=== PATIENT | female | born 1940 | race Two or more races ===

== ENCOUNTER 2023-03-18 19:51 | Inpatient (IN) | payer MEDICARE, BC ==
[~2023-03-18] VITALS: Ht 157.5 cm; Wt 48.1 kg
[2023-03-18 19:30] VITALS: O2SAT 84
[2023-03-18 20:00] VITALS: BP 98/53; TEMP 98.3; O2SAT 85
[2023-03-18 20:15] VITALS: O2SAT 95
[2023-03-18] MEDS ORDERED: ATOR10TA PO (22:02)
[2023-03-18] MEDS ORDERED: HYDR-3980 PO (22:02)
[2023-03-18] MEDS ORDERED: ACET-3117 PO (22:02)
[2023-03-18] MEDS ORDERED: AMIO100T4 PO (22:02)
[2023-03-18] MEDS ORDERED: BUDE0.5A4 IH (22:03)
[2023-03-18] MEDS ORDERED: LEVO100T10 PO (22:06)
[2023-03-18] MEDS ORDERED: [UNRECOGNIZED DRUG - CODE] PO (22:14)
[2023-03-18] MEDS ORDERED: ONDA4TAB5 GT (22:14)
[2023-03-18] MEDS ORDERED: MORP1SYR2 IV (22:14)
[2023-03-18] MEDS ORDERED: CHOL10005 PO (22:22)
[2023-03-19] VITALS (21 sets, daily range): BP systolic 98–133; BP diastolic 53–78; TEMP 97.4–98.5; O2SAT 93–99
[2023-03-19] MEDS ORDERED: Medication Not On Formulary EA (Acetaminophen 650 MG) PO PRN (10:45)
[2023-03-19] MEDS ORDERED: ONDANSETRON HCL 4 MG TABLET GT PRN (10:45)
[2023-03-19] MEDS ORDERED: ACETAMINOPHEN 325 MG TABLET PO PRN (10:45)
[2023-03-19] MEDS ORDERED: MULT-1119 PO (15:20)
[2023-03-19] MEDS ORDERED: ONDANSETRON HCL 4 MG TABLET PO PRN (15:39)
[2023-03-19] MEDS: HYDROCODONE/APAP 10-325 MG TABLET PO PRN (16:23)
[2023-03-19] MEDS ORDERED: BUDESONIDE 0.5 MG/2 ML NEBU IH SCH (17:00)
[2023-03-19 18:15] LABS: CALCIUM 9.3 mg/dL (8.5-10.1); CARBON DIOXIDE 26 mmol/L (21-32); CHLORIDE 96 mmol/L (98-107); CREATININE 1.2 mg/dL (0.6-1.3); GLUCOSE 127 mg/dL (74-106); POTASSIUM 5.2 mmol/L (3.5-5.1); SODIUM SERUM 128 mmol/L (136-145); UREA NITROGEN, BLOOD 34 mg/dL (7-18)
[2023-03-19 18:19] LABS: BASOPHILS # (AUTO) 0.1 K/UL (0.0-0.2); BASOPHILS % (AUTO) 0.9 % (0.0-2.0); DIFFERENTIAL COMMENT 0; EOSINOPHILS # (AUTO) 0.1 K/uL (0.0-0.7); EOSINOPHILS % (AUTO) 0.8 % (0.0-7.0); HEMATOCRIT 21.3 % (31.2-41.9); LYMPHOCYTES # (AUTO) 0.9 K/uL (0.8-4.8); LYMPHOCYTES % (AUTO) 8.5 % (20.5-51.5); MEAN CORPUSCULAR HGB CONC 33 g/dL (32.3-35.6); MEAN CORPUSCULAR VOLUME 107.5 fL (75.5-95.3); MONOCYTES # (AUTO) 1.6 K/uL (0.1-1.30); MONOCYTES % (AUTO) 15.6 % (0.0-11.0); NEUTROPHILS # (AUTO) 7.9 K/uL (1.8-8.9); NEUTROPHILS % (AUTO) 74.2 % (38.5-71.5); PLATELET COUNT (AUTO) 267 K/uL (179-408); RED CELL DISTRIBUTION WIDTH 13.6 % (12.3-17.7); WHITE BLOOD COUNT (AUTO) 10.6 K/uL (3.8-11.8)
[2023-03-19 18:28] LABS: HEMOGLOBIN 6.9 g/dL (10.9-14.3); RED BLOOD CELL COUNT(AUTO) 1.98 MIL/uL (3.63-4.92)
[2023-03-19] MEDS: IV NORMAL SALINE 500 ML IV ONE (20:00)
[2023-03-19 20:20] LABS: EOSINOPHILS % (MANUAL) 2 % (0-8); LYMPHOCYTES % (MANUAL) 11 % (20-40); MONOCYTES % (MANUAL) 16 % (2-10); NEUTROPHILS % (MANUAL) 71 % (42-75); PLATELET ESTIMATE ADEQUATE
[2023-03-19 20:21] LABS: ANISOCYTOSIS 2+
[2023-03-19] MEDS: ATORVASTATIN 10 MG TABLET PO SCH (21:14)
[2023-03-19] MEDS: BUDESONIDE 0.5 MG/2 ML NEBU IH SCH (21:46)
[2023-03-20] VITALS (18 sets, daily range): BP systolic 105–138; BP diastolic 51–68; TEMP 97.8–99.2; O2SAT 95–100
[2023-03-20 04:46] LABS: BASOPHILS # (AUTO) 0.1 K/UL (0.0-0.2); BASOPHILS % (AUTO) 1.3 % (0.0-2.0); EOSINOPHILS # (AUTO) 0.1 K/uL (0.0-0.7); EOSINOPHILS % (AUTO) 1.3 % (0.0-7.0); HEMATOCRIT 24.5 % (31.2-41.9); HEMOGLOBIN 8.4 g/dL (10.9-14.3); LYMPHOCYTES # (AUTO) 0.6 K/uL (0.8-4.8); LYMPHOCYTES % (AUTO) 6.7 % (20.5-51.5); MEAN CORPUSCULAR HEMOGLOBIN 35.5 uug (24.7-32.8); MEAN CORPUSCULAR HGB CONC 34 g/dL (32.3-35.6); MEAN CORPUSCULAR VOLUME 103.5 fL (75.5-95.3); MONOCYTES # (AUTO) 1.6 K/uL (0.1-1.30); MONOCYTES % (AUTO) 16.9 % (0.0-11.0); NEUTROPHILS # (AUTO) 7.1 K/uL (1.8-8.9); NEUTROPHILS % (AUTO) 73.8 % (38.5-71.5); PLATELET COUNT (AUTO) 226 K/uL (179-408); WHITE BLOOD COUNT (AUTO) 9.6 K/uL (3.8-11.8)
[2023-03-20] MEDS: IV NORMAL SALINE 500 ML IV ONE (04:52)
[2023-03-20 05:11] LABS: DIFFERENTIAL COMMENT 1; RED BLOOD CELL COUNT(AUTO) 2.36 MIL/uL (3.63-4.92)
[2023-03-20 05:21] LABS: POTASSIUM 4.9 mmol/L (3.5-5.1)
[2023-03-20] MEDS: LEVOTHYROXINE SODIUM 100 MCG TABLET PO SCH (06:15)
[2023-03-20 06:29] LABS: EOSINOPHILS % (MANUAL) 1 % (0-8); LYMPHOCYTES % (MANUAL) 7 % (20-40); MONOCYTES % (MANUAL) 9 % (2-10); NEUTROPHILS % (MANUAL) 83 % (42-75); PLATELET ESTIMATE ADEQUATE
[2023-03-20 06:30] LABS: ANISOCYTOSIS 1+
[2023-03-20] MEDS ORDERED: IOHEXOL 300MG/ML 100 ML INFUS..BTL ONE (07:44)
[2023-03-20] MEDS ORDERED: IV NORMAL SALINE 250 ML IV ONE (07:44)
[2023-03-20] MEDS: BUDESONIDE 0.5 MG/2 ML NEBU IH SCH ×2 (08:27→20:33)
[2023-03-20] MEDS ORDERED: Medication Not On Formulary EA (Multivitamin (Multi Vitamin Daily) 1 EACH) PO SCH (09:00)
[2023-03-20] MEDS ORDERED: AMIODARONE HCL 100 MG PO SCH (09:00)
[2023-03-20] MEDS ORDERED: Medication Not On Formulary EA (Cholecalciferol (Vitamin D3) (Vitamin D3) 1 CAP) PO SCH (09:00)
[2023-03-20] MEDS: AMIODARONE HCL 200 MG TABLET PO SCH (09:36)
[2023-03-20] MEDS: MULTIVITAMINS,THERAPEUTIC TABLET PO SCH (09:36)
[2023-03-20] MEDS: CHOLECALCIFEROL 1,000 UNIT TABLET PO SCH (09:37)
[2023-03-20] MEDS: HYDROCODONE/APAP 10-325 MG TABLET PO PRN (16:38)
[2023-03-20] MEDS: ATORVASTATIN 10 MG TABLET PO SCH (20:35)
[2023-03-21] VITALS (8 sets, daily range): BP systolic 102–145; BP diastolic 47–67; TEMP 97.8–98.6; O2SAT 96–100
[2023-03-21 05:52] LABS: BASOPHILS # (AUTO) 0.1 K/UL (0.0-0.2); BASOPHILS % (AUTO) 0.9 % (0.0-2.0); EOSINOPHILS # (AUTO) 0.1 K/uL (0.0-0.7); EOSINOPHILS % (AUTO) 1.4 % (0.0-7.0); HEMATOCRIT 24.1 % (31.2-41.9); HEMOGLOBIN 8.1 g/dL (10.9-14.3); LYMPHOCYTES # (AUTO) 0.5 K/uL (0.8-4.8); LYMPHOCYTES % (AUTO) 5.1 % (20.5-51.5); MEAN CORPUSCULAR HEMOGLOBIN 34.6 uug (24.7-32.8); MEAN CORPUSCULAR HGB CONC 34 g/dL (32.3-35.6); MONOCYTES # (AUTO) 1.5 K/uL (0.1-1.30); MONOCYTES % (AUTO) 15.2 % (0.0-11.0); NEUTROPHILS # (AUTO) 7.7 K/uL (1.8-8.9); NEUTROPHILS % (AUTO) 77.4 % (38.5-71.5); PLATELET COUNT (AUTO) 265 K/uL (179-408); RED CELL DISTRIBUTION WIDTH 15.9 % (12.3-17.7)
[2023-03-21] MEDS: LEVOTHYROXINE SODIUM 100 MCG TABLET PO SCH (06:11)
[2023-03-21 06:23] LABS: CALCIUM 9.3 mg/dL (8.5-10.1); CREATININE 0.8 mg/dL (0.6-1.3); MAGNESIUM 1.9 mg/dL (1.8-2.4); PHOSPHOROUS 3.5 mg/dL (2.5-4.9); POTASSIUM 4.7 mmol/L (3.5-5.1)
[2023-03-21 06:46] LABS: DIFFERENTIAL COMMENT 1; RED BLOOD CELL COUNT(AUTO) 2.34 MIL/uL (3.63-4.92)
[2023-03-21] MEDS: BUDESONIDE 0.5 MG/2 ML NEBU IH SCH ×2 (07:39→23:32)
[2023-03-21] MEDS: MULTIVITAMINS,THERAPEUTIC TABLET PO SCH (08:31)
[2023-03-21] MEDS: CHOLECALCIFEROL 1,000 UNIT TABLET PO SCH (08:31)
[2023-03-21] MEDS: AMIODARONE HCL 200 MG TABLET PO SCH (08:31)
[2023-03-21] MEDS: HYDROCODONE/APAP 10-325 MG TABLET PO PRN (08:42)
[2023-03-21] MEDS ORDERED: IV NORMAL SALINE 250 ML IV ONE ×2 (10:58→14:33)
[2023-03-21] MEDS ORDERED: IOHEXOL 300MG/ML 100 ML INFUS..BTL ONE ×2 (10:58→14:33)
[2023-03-21] MEDS ORDERED: SWABABLE VALVE TRANSFER SET EA MC ONE ×2 (10:58→14:33)
[2023-03-21] MEDS ORDERED: APIX2.5T PO (11:42)
[2023-03-21 14:57] LABS: LYMPHOCYTES % (MANUAL) 7 % (20-40); MONOCYTES % (MANUAL) 14 % (2-10); NEUTROPHILS % (MANUAL) 79 % (42-75)
[2023-03-21 14:58] LABS: ANISOCYTOSIS 1+; HYPOCHROMASIA 1+; PLATELET ESTIMATE ADEQUATE
[2023-03-21] MEDS: ATORVASTATIN 10 MG TABLET PO SCH (20:28)
[2023-03-22] VITALS (8 sets, daily range): BP systolic 108–136; BP diastolic 53–61; TEMP 97.9–98.6; O2SAT 94–99
[2023-03-22] MEDS: LEVOTHYROXINE SODIUM 100 MCG TABLET PO SCH (06:32)
[2023-03-22] MEDS: BUDESONIDE 0.5 MG/2 ML NEBU IH SCH ×2 (07:30→19:51)
[2023-03-22] MEDS: CHOLECALCIFEROL 1,000 UNIT TABLET PO SCH (09:22)
[2023-03-22] MEDS: AMIODARONE HCL 200 MG TABLET PO SCH (09:23)
[2023-03-22] MEDS: ENSURE ENLIVE (VAN) 240 ML LIQUID PO SCH (09:24)
[2023-03-22] MEDS: MULTIVITAMINS,THERAPEUTIC TABLET PO SCH (09:24)
[2023-03-22] MEDS ORDERED: BISACODYL 10 MG SUPP.RECT RC PRN (10:15)
[2023-03-22] MEDS ORDERED: FLEET ENEMA 133 ML BOTTLE RC PRN (10:15)
[2023-03-22] MEDS: ATORVASTATIN 10 MG TABLET PO SCH (21:11)
[2023-03-22] MEDS: DOCUSATE SODIUM 100 MG CAPSULE PO SCH (21:12)
[2023-03-23] VITALS (9 sets, daily range): BP systolic 111–137; BP diastolic 40–58; TEMP 98–98.3; O2SAT 94–99
[2023-03-23] MEDS: LEVOTHYROXINE SODIUM 100 MCG TABLET PO SCH (06:03)
[2023-03-23] MEDS: TRAMADOL HCL 50 MG TABLET PO PRN (06:04)
[2023-03-23] MEDS: BUDESONIDE 0.5 MG/2 ML NEBU IH SCH ×2 (08:02→20:27)
[2023-03-23] MEDS: MULTIVITAMINS,THERAPEUTIC TABLET PO SCH (08:19)
[2023-03-23] MEDS: CHOLECALCIFEROL 1,000 UNIT TABLET PO SCH (08:19)
[2023-03-23] MEDS: AMIODARONE HCL 200 MG TABLET PO SCH (08:20)
[2023-03-23] MEDS: ENSURE ENLIVE (VAN) 240 ML LIQUID PO SCH (08:20)
[2023-03-23] MEDS: ATORVASTATIN 10 MG TABLET PO SCH (20:41)
[2023-03-23] MEDS: DOCUSATE SODIUM 100 MG CAPSULE PO SCH (20:41)
[2023-03-24] VITALS (9 sets, daily range): BP systolic 121–139; BP diastolic 49–76; TEMP 97.7–98.5; O2SAT 93–100
[2023-03-24] MEDS: LEVOTHYROXINE SODIUM 100 MCG TABLET PO SCH (06:09)
[2023-03-24] MEDS ORDERED: LIDOCAINE HCL 1% 20 ML VIAL ONE (06:50)
[2023-03-24] MEDS ORDERED: BUPIVACAINE 0.25% 30 ML VIAL ONE (06:50)
[2023-03-24] MEDS ORDERED: MIDAZOLAM HCL 2 MG/2 ML VIAL ONE (07:30)
[2023-03-24] MEDS ORDERED: FENTANYL CITRATE 100 MCG/2 ML AMPUL ONE (07:30)
[2023-03-24] MEDS: BUDESONIDE 0.5 MG/2 ML NEBU IH SCH ×2 (07:30→18:11)
[2023-03-24] MEDS ORDERED: SEVOFLURANE 250 ML BOTTLE ONE (07:43)
[2023-03-24] MEDS ORDERED: BUPIVACAINE PF 0.5% 30 ML VIAL ONE (08:13)
[2023-03-24] MEDS: CHOLECALCIFEROL 1,000 UNIT TABLET PO SCH (10:37)
[2023-03-24] MEDS: ENSURE ENLIVE (VAN) 240 ML LIQUID PO SCH (10:38)
[2023-03-24] MEDS: MULTIVITAMINS,THERAPEUTIC TABLET PO SCH (10:38)
[2023-03-24] MEDS: AMIODARONE HCL 200 MG TABLET PO SCH (10:38)
[2023-03-24 11:41] LABS: BASOPHILS # (AUTO) 0.2 K/UL (0.0-0.2); DIFFERENTIAL COMMENT 0; EOSINOPHILS % (AUTO) 0.1 % (0.0-7.0); HEMATOCRIT 30.1 % (31.2-41.9); HEMOGLOBIN 9.7 g/dL (10.9-14.3); LYMPHOCYTES # (AUTO) 0.4 K/uL (0.8-4.8); LYMPHOCYTES % (AUTO) 2.8 % (20.5-51.5); MEAN CORPUSCULAR HEMOGLOBIN 33.7 uug (24.7-32.8); MEAN CORPUSCULAR HGB CONC 32 g/dL (32.3-35.6); MEAN CORPUSCULAR VOLUME 104.8 fL (75.5-95.3); MONOCYTES # (AUTO) 0.5 K/uL (0.1-1.30); MONOCYTES % (AUTO) 3.6 % (0.0-11.0); NEUTROPHILS % (AUTO) 92.5 % (38.5-71.5); PLATELET COUNT (AUTO) 454 K/uL (179-408); RED BLOOD CELL COUNT(AUTO) 2.87 MIL/uL (3.63-4.92); RED CELL DISTRIBUTION WIDTH 15.1 % (12.3-17.7); WHITE BLOOD COUNT (AUTO) 15.1 K/uL (3.8-11.8)
[2023-03-24 12:36] LABS: ALANINE AMINOTRANSFERASE 14 U/L (14-59); ALBUMIN 2.7 g/dL (3.4-5.0); ALKALINE PHOSPHATASE 112 U/L (50-136); ASPARTATE AMINOTRANSFERASE 46 U/L (15-37); BILIRUBIN,TOTAL 0.7 mg/dL (0.2-1.0); CALCIUM 9.2 mg/dL (8.5-10.1); CARBON DIOXIDE 31 mmol/L (21-32); CHLORIDE 100 mmol/L (98-107); CHOLESTEROL 116 mg/dL (<200); CREATININE 0.8 mg/dL (0.6-1.3); GLUCOSE 134 mg/dL (74-106); HDL CHOLESTEROL 59 mg/dL (40-60); PHOSPHOROUS 4.3 mg/dL (2.5-4.9); SODIUM SERUM 135 mmol/L (136-145); TOTAL PROTEIN, SERUM 6.8 g/dL (6.4-8.2); TRIGLYCERIDES 44 MG/DL (30-150); UREA NITROGEN, BLOOD 21 mg/dL (7-18)
[2023-03-24 12:52] LABS: IRON, SERUM 22 ug/dL (50-175)
[2023-03-24 13:28] LABS: THYROID STIMULATING HORMONE 4.209 mIU/mL (0.358-3.740)
[2023-03-24 14:46] LABS: POTASSIUM 5.4 mmol/L (3.5-5.1)
[2023-03-24 17:20] LABS: CREATININE 0.8 mg/dL (0.6-1.3); POTASSIUM 5.5 mmol/L (3.5-5.1)
[2023-03-24] MEDS: FLUTICASONE/VILANTEROL 1 EACH BLST.W.DEV INH SCH (18:17)
[2023-03-24] MEDS ORDERED: ALBUTEROL SULFATE 2.5 MG/3 ML NEBU NEB PRN (18:30)
[2023-03-24] MEDS ORDERED: SODIUM POLYSTYRENE SULFONATE 15 G/60 ML LIQUID UDC PO ONE (20:30)
[2023-03-24] MEDS: DOCUSATE SODIUM 100 MG CAPSULE PO SCH (21:30)
[2023-03-24] MEDS: ATORVASTATIN 10 MG TABLET PO SCH (21:30)
[2023-03-24] MEDS: VANCOMYCIN IV 750 MG in IV DEXTROSE 5% 250 ML IV SCH (21:33)
[2023-03-24] MEDS ORDERED: PIPERACILLIN SODIUM/TAZOBACTAM 3.375 G in IV DEXTROSE 5% 50 ML IV SCH (22:00)
[2023-03-24] MEDS: PIPERACILLIN SODIUM/TAZOBACTAM 3.375 G in IV DEXTROSE 5% 100 ML IV SCH (22:56)
[2023-03-25] VITALS (8 sets, daily range): BP systolic 112–114; BP diastolic 42–56; TEMP 97.7–98.6; O2SAT 94–100
[2023-03-25] MEDS: LEVOTHYROXINE SODIUM 100 MCG TABLET PO SCH (06:22)
[2023-03-25] MEDS: PIPERACILLIN SODIUM/TAZOBACTAM 3.375 G in IV DEXTROSE 5% 100 ML IV SCH ×3 (06:22→21:05)
[2023-03-25 06:57] LABS: BASOPHILS % (AUTO) 0.1 % (0.0-2.0); HEMATOCRIT 24.4 % (31.2-41.9); HEMOGLOBIN 8.1 g/dL (10.9-14.3); LYMPHOCYTES # (AUTO) 0.3 K/uL (0.8-4.8); LYMPHOCYTES % (AUTO) 2.1 % (20.5-51.5); MEAN CORPUSCULAR HEMOGLOBIN 33.9 uug (24.7-32.8); MEAN CORPUSCULAR HGB CONC 33 g/dL (32.3-35.6); MEAN CORPUSCULAR VOLUME 102.2 fL (75.5-95.3); MONOCYTES # (AUTO) 1.5 K/uL (0.1-1.30); MONOCYTES % (AUTO) 10.3 % (0.0-11.0); NEUTROPHILS # (AUTO) 12.6 K/uL (1.8-8.9); NEUTROPHILS % (AUTO) 87.5 % (38.5-71.5); PLATELET COUNT (AUTO) 385 K/uL (179-408); RED CELL DISTRIBUTION WIDTH 14.7 % (12.3-17.7); WHITE BLOOD COUNT (AUTO) 14.4 K/uL (3.8-11.8)
[2023-03-25 07:17] LABS: ALBUMIN 2.4 g/dL (3.4-5.0); ALKALINE PHOSPHATASE 91 U/L (50-136); ASPARTATE AMINOTRANSFERASE 19 U/L (15-37); BILIRUBIN,TOTAL 0.4 mg/dL (0.2-1.0); CARBON DIOXIDE 32 mmol/L (21-32); CHLORIDE 99 mmol/L (98-107); CREATININE 0.9 mg/dL (0.6-1.3); DIFFERENTIAL COMMENT 1; GLUCOSE 130 mg/dL (74-106); NT-PRO BNP 19849 pg/mL (0-125); PHOSPHOROUS 4.3 mg/dL (2.5-4.9); POTASSIUM 4.9 mmol/L (3.5-5.1); RED BLOOD CELL COUNT(AUTO) 2.39 MIL/uL (3.63-4.92); SODIUM SERUM 133 mmol/L (136-145); TOTAL PROTEIN, SERUM 5.8 g/dL (6.4-8.2); UREA NITROGEN, BLOOD 29 mg/dL (7-18)
[2023-03-25 07:32] LABS: C-REACTIVE PROTEIN 28.9 mg/dL (0.0-0.9)
[2023-03-25 07:45] LABS: *RHEUMATOID FACTOR SCREEN NEGATIVE (NEGATIVE)
[2023-03-25 07:53] LABS: ALANINE AMINOTRANSFERASE 10 U/L (14-59)
[2023-03-25] MEDS: FLUTICASONE/VILANTEROL 1 EACH BLST.W.DEV INH SCH (09:18)
[2023-03-25] MEDS: AMIODARONE HCL 200 MG TABLET PO SCH (09:19)
[2023-03-25] MEDS: MULTIVITAMINS,THERAPEUTIC TABLET PO SCH (09:19)
[2023-03-25] MEDS: CHOLECALCIFEROL 1,000 UNIT TABLET PO SCH (09:19)
[2023-03-25] MEDS: ENSURE ENLIVE (VAN) 240 ML LIQUID PO SCH (09:19)
[2023-03-25] MEDS: BUDESONIDE 0.5 MG/2 ML NEBU IH SCH ×2 (10:02→19:39)
[2023-03-25] MEDS ORDERED: LORAZEPAM 1 MG TABLET PO PRN (16:45)
[2023-03-25] MEDS: TRAMADOL HCL 50 MG TABLET PO PRN (17:13)
[2023-03-25] MEDS: ATORVASTATIN 10 MG TABLET PO SCH (20:13)
[2023-03-25] MEDS: DOCUSATE SODIUM 100 MG CAPSULE PO SCH (20:13)
[2023-03-25] MEDS: VANCOMYCIN IV 750 MG in IV DEXTROSE 5% 250 ML IV SCH (20:13)
[2023-03-26] VITALS (8 sets, daily range): BP systolic 123–130; BP diastolic 51–68; TEMP 97.8–98.1; O2SAT 98–100
[2023-03-26] MEDS: TRAMADOL HCL 50 MG TABLET PO PRN (00:02)
[2023-03-26] MEDS: PIPERACILLIN SODIUM/TAZOBACTAM 3.375 G in IV DEXTROSE 5% 100 ML IV SCH ×3 (05:25→22:08)
[2023-03-26] MEDS: LEVOTHYROXINE SODIUM 100 MCG TABLET PO SCH (06:32)
[2023-03-26] MEDS: BUDESONIDE 0.5 MG/2 ML NEBU IH SCH ×2 (07:44→19:22)
[2023-03-26] MEDS: FLUTICASONE/VILANTEROL 1 EACH BLST.W.DEV INH SCH (09:40)
[2023-03-26] MEDS: CHOLECALCIFEROL 1,000 UNIT TABLET PO SCH (09:40)
[2023-03-26] MEDS: AMIODARONE HCL 200 MG TABLET PO SCH (09:41)
[2023-03-26] MEDS: MULTIVITAMINS,THERAPEUTIC TABLET PO SCH (09:41)
[2023-03-26] MEDS: ENSURE ENLIVE (VAN) 240 ML LIQUID PO SCH (09:41)
[2023-03-26] MEDS: FUROSEMIDE 20 MG/2 ML VIAL IV SCH (10:44)
[2023-03-26 12:07] LABS: *IMMUNOGLOBULIN G, SERUM 852 mg/dL (586-1602); IMMUNOGLOBULIN A, SERUM 282 mg/dL (64-422); IMMUNOGLOBULIN M, SERUM 160 mg/dL (26-217)
[2023-03-26 12:17] LABS: *BILIRUBIN,URIN NEGATIVE (NEGATIVE); *BLOOD, URINE NEGATIVE (NEGATIVE); *CLARITY,URINE SLIGHTLY CLOUDY (CLEAR); *COLOR,URINE YELLOW (YELLOW); *KETONES,URINE NEGATIVE (NEGATIVE); *PROTEIN,URINE NEGATIVE (NEGATIVE); *UROBILINOGEN,URINE 0.2 E.U./dl (NORMAL); LEUKOCYTE ESTERASE ,URINE 2+ (NEGATIVE); NITRITE, URINE NEGATIVE (NEGATIVE); PH,URINE 5.5 (5.0-8.0); UGLUCOSE NEGATIVE (NEGATIVE)
[2023-03-26 13:03] LABS: BACTERIA,URINE MANY /HPF (NONE SEEN); RBC,URINE NONE SEEN /HPF (0-3); SQUAMOUS EPITHELIAL CELL,UR FEW /HPF (NONE SEEN); WBC,URINE TNTC /HPF (0-3)
[2023-03-26 13:07] LABS: *ANTI-SCLERODERMA-70 AB <0.2 AI (0.0-0.9); *RNP ANTIBODIES <0.2 AI (0.0-0.9); *SJOGREN'S ANTI-SS-A <0.2 AI (0.0-0.9); *SJOGREN'S ANTI-SS-B <0.2 AI (0.0-0.9); *SMITH ANTIBODIES <0.2 AI (0.0-0.9); ANTI-DNA(DS) AB, QN 3 IU/mL (0-9); ANTI-NUCLEAR AB DIRECT Negative (Negative)
[2023-03-26] MEDS ORDERED: GADOTERATE MEGLUMINE 5 MMOL/10 ML VIAL IV ONE (14:33)
[2023-03-26 16:15] LABS: BASOPHILS # (AUTO) 0.1 K/UL (0.0-0.2); BASOPHILS % (AUTO) 0.6 % (0.0-2.0); EOSINOPHILS # (AUTO) 0.1 K/uL (0.0-0.7); EOSINOPHILS % (AUTO) 1.1 % (0.0-7.0); HEMATOCRIT 26.3 % (31.2-41.9); HEMOGLOBIN 8.5 g/dL (10.9-14.3); LYMPHOCYTES # (AUTO) 0.5 K/uL (0.8-4.8); LYMPHOCYTES % (AUTO) 4.6 % (20.5-51.5); MEAN CORPUSCULAR HEMOGLOBIN 32.9 uug (24.7-32.8); MEAN CORPUSCULAR HGB CONC 32 g/dL (32.3-35.6); MEAN CORPUSCULAR VOLUME 101.6 fL (75.5-95.3); MONOCYTES # (AUTO) 1.1 K/uL (0.1-1.30); MONOCYTES % (AUTO) 10.2 % (0.0-11.0); NEUTROPHILS # (AUTO) 9.1 K/uL (1.8-8.9); NEUTROPHILS % (AUTO) 83.5 % (38.5-71.5); PLATELET COUNT (AUTO) 449 K/uL (179-408); RED BLOOD CELL COUNT(AUTO) 2.59 MIL/uL (3.63-4.92); WHITE BLOOD COUNT (AUTO) 10.8 K/uL (3.8-11.8)
[2023-03-26 16:20] LABS: DIFFERENTIAL COMMENT 1
[2023-03-26] MEDS: VANCOMYCIN IV 750 MG in IV DEXTROSE 5% 250 ML IV SCH (19:56)
[2023-03-26] MEDS: DOCUSATE SODIUM 100 MG CAPSULE PO SCH (20:00)
[2023-03-26] MEDS: ATORVASTATIN 10 MG TABLET PO SCH (20:00)
[2023-03-27] VITALS (8 sets, daily range): BP systolic 112–127; BP diastolic 47–53; TEMP 97.7–98.2; O2SAT 93–100
[2023-03-27] MEDS: PIPERACILLIN SODIUM/TAZOBACTAM 3.375 G in IV DEXTROSE 5% 100 ML IV SCH ×3 (05:19→23:18)
[2023-03-27] MEDS: LEVOTHYROXINE SODIUM 100 MCG TABLET PO SCH (06:31)
[2023-03-27 07:20] LABS: BASOPHILS # (AUTO) 0.2 K/UL (0.0-0.2); BASOPHILS % (AUTO) 1.7 % (0.0-2.0); EOSINOPHILS # (AUTO) 0.1 K/uL (0.0-0.7); EOSINOPHILS % (AUTO) 1.2 % (0.0-7.0); HEMATOCRIT 24.4 % (31.2-41.9); HEMOGLOBIN 7.8 g/dL (10.9-14.3); LYMPHOCYTES # (AUTO) 0.4 K/uL (0.8-4.8); LYMPHOCYTES % (AUTO) 3.4 % (20.5-51.5); MEAN CORPUSCULAR HEMOGLOBIN 32.9 uug (24.7-32.8); MEAN CORPUSCULAR HGB CONC 32 g/dL (32.3-35.6); MEAN CORPUSCULAR VOLUME 102.6 fL (75.5-95.3); MONOCYTES # (AUTO) 1.3 K/uL (0.1-1.30); MONOCYTES % (AUTO) 11.2 % (0.0-11.0); NEUTROPHILS # (AUTO) 9.5 K/uL (1.8-8.9); NEUTROPHILS % (AUTO) 82.5 % (38.5-71.5); PLATELET COUNT (AUTO) 387 K/uL (179-408); RED CELL DISTRIBUTION WIDTH 15.5 % (12.3-17.7); WHITE BLOOD COUNT (AUTO) 11.5 K/uL (3.8-11.8)
[2023-03-27 07:38] LABS: DIFFERENTIAL COMMENT 1; RED BLOOD CELL COUNT(AUTO) 2.38 MIL/uL (3.63-4.92)
[2023-03-27] MEDS: BUDESONIDE 0.5 MG/2 ML NEBU IH SCH ×2 (08:37→19:58)
[2023-03-27] MEDS: CHOLECALCIFEROL 1,000 UNIT TABLET PO SCH (09:16)
[2023-03-27] MEDS: MULTIVITAMINS,THERAPEUTIC TABLET PO SCH (09:16)
[2023-03-27] MEDS: FUROSEMIDE 20 MG/2 ML VIAL IV SCH (09:17)
[2023-03-27] MEDS: AMIODARONE HCL 200 MG TABLET PO SCH (09:17)
[2023-03-27] MEDS: FLUTICASONE/VILANTEROL 1 EACH BLST.W.DEV INH SCH (09:17)
[2023-03-27] MEDS: ENSURE ENLIVE (VAN) 240 ML LIQUID PO SCH (09:18)
[2023-03-27] MEDS: SOD FERRIC GLUC COMPLX/SUCROSE 125 MG in IV NORMAL SALINE 100 ML IV SCH (14:58)
[2023-03-27 20:26] LABS: HIV-1/2 ANTIBODY NON REACTIVE (NONREACTIVE)
[2023-03-27 20:27] LABS: HIV-1 p24 ANTIGEN NON REACTIVE (NONREACTIVE)
[2023-03-27] MEDS: VANCOMYCIN IV 750 MG in IV DEXTROSE 5% 250 ML IV SCH (20:42)
[2023-03-27] MEDS: ATORVASTATIN 10 MG TABLET PO SCH (20:43)
[2023-03-27] MEDS: DOCUSATE SODIUM 100 MG CAPSULE PO SCH (20:43)
[2023-03-27] MEDS: APIXABAN 2.5 MG TABLET PO SCH (21:23)
[2023-03-28] VITALS (8 sets, daily range): BP systolic 124–136; BP diastolic 46–54; TEMP 97.8–98.7; O2SAT 93–100
[2023-03-28] MEDS: PIPERACILLIN SODIUM/TAZOBACTAM 3.375 G in IV DEXTROSE 5% 100 ML IV SCH ×3 (06:02→22:10)
[2023-03-28] MEDS: LEVOTHYROXINE SODIUM 100 MCG TABLET PO SCH (06:02)
[2023-03-28] MEDS: BUDESONIDE 0.5 MG/2 ML NEBU IH SCH ×2 (07:32→19:42)
[2023-03-28 07:38] LABS: BASOPHILS # (AUTO) 0.1 K/UL (0.0-0.2); BASOPHILS % (AUTO) 0.8 % (0.0-2.0); DIFFERENTIAL COMMENT 0; EOSINOPHILS # (AUTO) 0.2 K/uL (0.0-0.7); EOSINOPHILS % (AUTO) 1.3 % (0.0-7.0); HEMOGLOBIN 7.5 g/dL (10.9-14.3); LYMPHOCYTES # (AUTO) 0.3 K/uL (0.8-4.8); LYMPHOCYTES % (AUTO) 2.4 % (20.5-51.5); MEAN CORPUSCULAR HEMOGLOBIN 32.2 uug (24.7-32.8); MEAN CORPUSCULAR HGB CONC 33 g/dL (32.3-35.6); MEAN CORPUSCULAR VOLUME 98.9 fL (75.5-95.3); MONOCYTES # (AUTO) 1.3 K/uL (0.1-1.30); MONOCYTES % (AUTO) 10.7 % (0.0-11.0); NEUTROPHILS # (AUTO) 10.2 K/uL (1.8-8.9); NEUTROPHILS % (AUTO) 84.8 % (38.5-71.5); PLATELET COUNT (AUTO) 413 K/uL (179-408); RED CELL DISTRIBUTION WIDTH 15.5 % (12.3-17.7); WHITE BLOOD COUNT (AUTO) 12.1 K/uL (3.8-11.8)
[2023-03-28 07:40] LABS: RED BLOOD CELL COUNT(AUTO) 2.32 MIL/uL (3.63-4.92)
[2023-03-28] MEDS: CHOLECALCIFEROL 1,000 UNIT TABLET PO SCH (09:34)
[2023-03-28] MEDS: FUROSEMIDE 20 MG/2 ML VIAL IV SCH (09:34)
[2023-03-28] MEDS: AMIODARONE HCL 200 MG TABLET PO SCH (09:34)
[2023-03-28] MEDS: MULTIVITAMINS,THERAPEUTIC TABLET PO SCH (09:34)
[2023-03-28] MEDS: APIXABAN 2.5 MG TABLET PO SCH ×2 (09:36→20:40)
[2023-03-28] MEDS: ENSURE ENLIVE (VAN) 240 ML LIQUID PO SCH (09:37)
[2023-03-28] MEDS: FLUTICASONE/VILANTEROL 1 EACH BLST.W.DEV INH SCH (09:37)
[2023-03-28] MEDS: SOD FERRIC GLUC COMPLX/SUCROSE 125 MG in IV NORMAL SALINE 100 ML IV SCH (14:34)
[2023-03-28] MEDS: VANCOMYCIN IV 750 MG in IV DEXTROSE 5% 250 ML IV SCH (20:40)
[2023-03-28] MEDS: ATORVASTATIN 10 MG TABLET PO SCH (20:40)
[2023-03-28] MEDS: DOCUSATE SODIUM 100 MG CAPSULE PO SCH (20:40)
[2023-03-29] VITALS (7 sets, daily range): BP systolic 134–143; BP diastolic 55–72; TEMP 97.6–99; O2SAT 93–99
[2023-03-29 05:07] LABS: A/G RATIO 0.9 (0.7-1.7); ALBUMIN 2.4 g/dL (2.9-4.4); ALPHA-1-GLOBULIN 0.5 g/dL (0.0-0.4); ALPHA-2-GLOBULIN 0.7 g/dL (0.4-1.0); BETA GLOBULIN 0.8 g/dL (0.7-1.3); GAMMA GLOBULIN 0.9 g/dL (0.4-1.8); GLOBULIN, TOTAL 2.8 g/dL (2.2-3.9); M-SPIKE Not Observed g/dL (Not Observed)
[2023-03-29] MEDS: PIPERACILLIN SODIUM/TAZOBACTAM 3.375 G in IV DEXTROSE 5% 100 ML IV SCH ×3 (06:26→22:10)
[2023-03-29] MEDS: LEVOTHYROXINE SODIUM 100 MCG TABLET PO SCH (06:26)
[2023-03-29] MEDS: CHOLECALCIFEROL 1,000 UNIT TABLET PO SCH (08:30)
[2023-03-29] MEDS: MULTIVITAMINS,THERAPEUTIC TABLET PO SCH (08:30)
[2023-03-29] MEDS: FUROSEMIDE 20 MG/2 ML VIAL IV SCH (08:31)
[2023-03-29] MEDS: FLUTICASONE/VILANTEROL 1 EACH BLST.W.DEV INH SCH (08:31)
[2023-03-29] MEDS: AMIODARONE HCL 200 MG TABLET PO SCH (08:31)
[2023-03-29] MEDS: APIXABAN 2.5 MG TABLET PO SCH ×2 (08:41→20:53)
[2023-03-29] MEDS: ENSURE ENLIVE (VAN) 240 ML LIQUID PO SCH (08:42)
[2023-03-29 10:53] LABS: BASOPHILS # (AUTO) 0.1 K/UL (0.0-0.2); BASOPHILS % (AUTO) 0.6 % (0.0-2.0); EOSINOPHILS # (AUTO) 0.1 K/uL (0.0-0.7); EOSINOPHILS % (AUTO) 0.7 % (0.0-7.0); HEMATOCRIT 26.3 % (31.2-41.9); HEMOGLOBIN 8.5 g/dL (10.9-14.3); LYMPHOCYTES # (AUTO) 0.3 K/uL (0.8-4.8); LYMPHOCYTES % (AUTO) 2.3 % (20.5-51.5); MEAN CORPUSCULAR HEMOGLOBIN 32.3 uug (24.7-32.8); MEAN CORPUSCULAR HGB CONC 32 g/dL (32.3-35.6); MEAN CORPUSCULAR VOLUME 99.7 fL (75.5-95.3); MONOCYTES # (AUTO) 0.9 K/uL (0.1-1.30); MONOCYTES % (AUTO) 8.3 % (0.0-11.0); NEUTROPHILS # (AUTO) 9.6 K/uL (1.8-8.9); NEUTROPHILS % (AUTO) 88.1 % (38.5-71.5); PLATELET COUNT (AUTO) 470 K/uL (179-408); RED BLOOD CELL COUNT(AUTO) 2.64 MIL/uL (3.63-4.92); RED CELL DISTRIBUTION WIDTH 15.8 % (12.3-17.7); WHITE BLOOD COUNT (AUTO) 10.9 K/uL (3.8-11.8)
[2023-03-29 11:05] LABS: DIFFERENTIAL COMMENT 1
[2023-03-29] MEDS: SOD FERRIC GLUC COMPLX/SUCROSE 125 MG in IV NORMAL SALINE 100 ML IV SCH (14:28)
[2023-03-29] MEDS: BUDESONIDE 0.5 MG/2 ML NEBU IH SCH ×2 (16:17→20:34)
[2023-03-29] MEDS: ATORVASTATIN 10 MG TABLET PO SCH (20:53)
[2023-03-29] MEDS: DOCUSATE SODIUM 100 MG CAPSULE PO SCH (20:53)
[2023-03-30 05:11] VITALS: BP 127/41; TEMP 98.6; O2SAT 99
[2023-03-30] MEDS: PIPERACILLIN SODIUM/TAZOBACTAM 3.375 G in IV DEXTROSE 5% 100 ML IV SCH ×2 (06:11→13:01)
[2023-03-30] MEDS: LEVOTHYROXINE SODIUM 100 MCG TABLET PO SCH (06:17)
[2023-03-30 07:05] LABS: BASOPHILS # (AUTO) 0.1 K/UL (0.0-0.2); BASOPHILS % (AUTO) 1.3 % (0.0-2.0); EOSINOPHILS # (AUTO) 0.2 K/uL (0.0-0.7); EOSINOPHILS % (AUTO) 2.1 % (0.0-7.0); HEMATOCRIT 23.6 % (31.2-41.9); HEMOGLOBIN 7.6 g/dL (10.9-14.3); LYMPHOCYTES # (AUTO) 0.4 K/uL (0.8-4.8); LYMPHOCYTES % (AUTO) 4.1 % (20.5-51.5); MEAN CORPUSCULAR HEMOGLOBIN 32.3 uug (24.7-32.8); MEAN CORPUSCULAR HGB CONC 32 g/dL (32.3-35.6); MEAN CORPUSCULAR VOLUME 100.1 fL (75.5-95.3); MONOCYTES # (AUTO) 1.3 K/uL (0.1-1.30); MONOCYTES % (AUTO) 12.8 % (0.0-11.0); NEUTROPHILS # (AUTO) 8.1 K/uL (1.8-8.9); NEUTROPHILS % (AUTO) 79.7 % (38.5-71.5); PLATELET COUNT (AUTO) 431 K/uL (179-408); RED CELL DISTRIBUTION WIDTH 15.9 % (12.3-17.7); WHITE BLOOD COUNT (AUTO) 10.2 K/uL (3.8-11.8)
[2023-03-30 07:18] LABS: DIFFERENTIAL COMMENT 1; RED BLOOD CELL COUNT(AUTO) 2.36 MIL/uL (3.63-4.92)
[2023-03-30 07:30] VITALS: O2SAT 97
[2023-03-30 07:40] VITALS: BP 124/58; TEMP 97.7; O2SAT 94; O2SAT 99
[2023-03-30] MEDS: BUDESONIDE 0.5 MG/2 ML NEBU IH SCH ×2 (07:49→19:21)
[2023-03-30] MEDS: FLUTICASONE/VILANTEROL 1 EACH BLST.W.DEV INH SCH (08:27)
[2023-03-30] MEDS: FUROSEMIDE 20 MG/2 ML VIAL IV SCH (08:27)
[2023-03-30] MEDS: AMIODARONE HCL 200 MG TABLET PO SCH (08:28)
[2023-03-30] MEDS: APIXABAN 2.5 MG TABLET PO SCH ×2 (08:30→21:02)
[2023-03-30] MEDS: CHOLECALCIFEROL 1,000 UNIT TABLET PO SCH (08:31)
[2023-03-30] MEDS: ENSURE ENLIVE (VAN) 240 ML LIQUID PO SCH (08:31)
[2023-03-30] MEDS: MULTIVITAMINS,THERAPEUTIC TABLET PO SCH (08:31)
[2023-03-30] MEDS: SOD FERRIC GLUC COMPLX/SUCROSE 125 MG in IV NORMAL SALINE 100 ML IV SCH (13:10)
[2023-03-30 16:00] VITALS: BP 134/59; TEMP 98.1; O2SAT 93
[2023-03-30 19:21] VITALS: O2SAT 99
[2023-03-30 19:31] VITALS: O2SAT 100
[2023-03-30] MEDS: ATORVASTATIN 10 MG TABLET PO SCH (20:57)
[2023-03-30] MEDS: DOCUSATE SODIUM 100 MG CAPSULE PO SCH (21:00)
[2023-03-31 06:10] VITALS: BP 116/60; TEMP 97.8; O2SAT 100
[2023-03-31] MEDS: LEVOTHYROXINE SODIUM 100 MCG TABLET PO SCH (06:17)
[2023-03-31 06:35] LABS: BASOPHILS # (AUTO) 0.2 K/UL (0.0-0.2); EOSINOPHILS # (AUTO) 0.2 K/uL (0.0-0.7); EOSINOPHILS % (AUTO) 2.5 % (0.0-7.0); HEMATOCRIT 23.8 % (31.2-41.9); HEMOGLOBIN 7.9 g/dL (10.9-14.3); LYMPHOCYTES # (AUTO) 0.5 K/uL (0.8-4.8); LYMPHOCYTES % (AUTO) 5.9 % (20.5-51.5); MEAN CORPUSCULAR HEMOGLOBIN 32.6 uug (24.7-32.8); MEAN CORPUSCULAR HGB CONC 33 g/dL (32.3-35.6); MEAN CORPUSCULAR VOLUME 98.7 fL (75.5-95.3); MONOCYTES # (AUTO) 1.1 K/uL (0.1-1.30); MONOCYTES % (AUTO) 14.2 % (0.0-11.0); NEUTROPHILS # (AUTO) 5.8 K/uL (1.8-8.9); NEUTROPHILS % (AUTO) 75.4 % (38.5-71.5); PLATELET COUNT (AUTO) 451 K/uL (179-408); RED CELL DISTRIBUTION WIDTH 15.9 % (12.3-17.7); WHITE BLOOD COUNT (AUTO) 7.7 K/uL (3.8-11.8)
[2023-03-31 06:48] LABS: DIFFERENTIAL COMMENT 1; RED BLOOD CELL COUNT(AUTO) 2.41 MIL/uL (3.63-4.92)
[2023-03-31 07:51] VITALS: BP 145/58; TEMP 97.7; O2SAT 99
[2023-03-31] MEDS: APIXABAN 2.5 MG TABLET PO SCH (08:13)
[2023-03-31] MEDS: MULTIVITAMINS,THERAPEUTIC TABLET PO SCH (08:13)
[2023-03-31] MEDS: FLUTICASONE/VILANTEROL 1 EACH BLST.W.DEV INH SCH (08:14)
[2023-03-31] MEDS: FUROSEMIDE 20 MG/2 ML VIAL IV SCH (08:14)
[2023-03-31] MEDS: CHOLECALCIFEROL 1,000 UNIT TABLET PO SCH (08:14)
[2023-03-31] MEDS: AMIODARONE HCL 200 MG TABLET PO SCH (08:14)
[2023-03-31] MEDS: ENSURE ENLIVE (VAN) 240 ML LIQUID PO SCH (08:15)
[2023-03-31] MEDS: BUDESONIDE 0.5 MG/2 ML NEBU IH SCH (08:55)
[2023-03-31 15:08] VITALS: BP 128/58; TEMP 98.2; O2SAT 94
== END 2023-03-31 16:00 | disposition home health service (06) | DRG 949 ==
LOC: ICU 19:51 → CCU 03-19 07:58
PROVIDERS: ADMIT Physical Medicine & Rehabilitation Pain Medicine; ATTEND Physical Medicine & Rehabilitation Pain Medicine
PROC: 30233N1 Transfusion of Nonautologous Red Blood Cells into Peripheral Vein, Percutaneous Approach (ICD-10-PCS; principal; 2023-03-19)
DX: S80.12XD Contusion of left lower leg, subsequent encounter (principal); N17.0 Acute kidney failure with tubular necrosis; D62 Acute posthemorrhagic anemia; E87.1 Hypo-osmolality and hyponatremia; I31.39 Other pericardial effusion (noninflammatory); I48.20 Chronic atrial fibrillation, unspecified; I96 Gangrene, not elsewhere classified; J90 Pleural effusion, not elsewhere classified; J98.11 Atelectasis; N39.0 Urinary tract infection, site not specified; Z68.1 Body mass index [BMI] 19.9 or less, adult; R53.1 Weakness; E86.0 Dehydration; E86.1 Hypovolemia; I13.10 Hypertensive heart and chronic kidney disease without heart failure, with stage 1 through stage 4 chronic kidney disease, or unspecified chronic kidney disease; I48.91 Unspecified atrial fibrillation; W22.03XD Walked into furniture, subsequent encounter; J44.9 Chronic obstructive pulmonary disease, unspecified; M81.0 Age-related osteoporosis without current pathological fracture; N18.9 Chronic kidney disease, unspecified; Z79.01 Long term (current) use of anticoagulants; D50.9 Iron deficiency anemia, unspecified; D72.821 Monocytosis (symptomatic); D75.839 Thrombocytosis, unspecified; E03.9 Hypothyroidism, unspecified; E78.5 Hyperlipidemia, unspecified; E87.5 Hyperkalemia; K80.20 Calculus of gallbladder without cholecystitis without obstruction; M19.90 Unspecified osteoarthritis, unspecified site; N32.3 Diverticulum of bladder; N83.9 Noninflammatory disorder of ovary, fallopian tube and broad ligament, unspecified; R62.7 Adult failure to thrive; M80.08XD Age-related osteoporosis with current pathological fracture, vertebra(e), subsequent encounter for fracture with routine healing; S32.9XXD Fracture of unspecified parts of lumbosacral spine and pelvis, subsequent encounter for fracture with routine healing; R26.2 Difficulty in walking, not elsewhere classified
CPT/HCPCS: 36415; 70030-TC; 71045; 74018; 76856; 82784; 83550; 83735; 84100; 84155; 84165; 84443; 84484; 85025; 86038; 86140; 86334; 86430; 86803; 86850; 86900; 86901; 86920; 87040; 87806; 88185; 93307; 94640; 94760; 97535-GO-CO; A4606; A6209; A6213; A9575; G0378; J1940; J2250; J2543; J2916; J3010; J3370; J3490; J7040; J7050; P9016; Q9967

== ENCOUNTER 2023-03-24 06:52 | Day surgery (SDC) | payer MEDICARE, BC ==
[~2023-03-24 06:52] MED LIST: ACET-3117 PO; AMIO100T4 PO; APIX2.5T PO; ATOR10TA PO; BUDE0.5A4 IH; CHOL10005 PO; HYDR-3980 PO; LEVO100T10 PO; MORP1SYR2 IV; MULT-1119 PO; ONDA4TAB5 GT; [UNRECOGNIZED DRUG - CODE] PO
[2023-03-24] MEDS ORDERED: ONDANSETRON 4 MG/2 ML VIAL ONE (07:30)
[2023-03-24] MEDS ORDERED: LIDOCAINE-MPF 2% 5 ML VIAL ONE (07:30)
[2023-03-24] MEDS ORDERED: PROPOFOL 200 MG/20 ML BOTTLE ONE (07:30)
[2023-03-24] MEDS ORDERED: CEFAZOLIN 1 G VIAL ONE (07:30)
[2023-03-24] MEDS ORDERED: GLYCOPYRROLATE 0.2 MG/ML VIAL ONE (07:30)
[2023-03-24] MEDS ORDERED: DEXAMETHASONE SOD PHOSPHATE 4 MG INJ ONE (07:30)
[2023-03-24 09:58] VITALS: TEMP 97.7
== END 2023-03-24 10:14 | disposition still patient (30) ==
LOC: DS 06:52
PROVIDERS: ATTEND Podiatrist Foot & Ankle Surgery
DX: T81.49XA Infection following a procedure, other surgical site, initial encounter (principal); J44.9 Chronic obstructive pulmonary disease, unspecified; I48.91 Unspecified atrial fibrillation; E87.1 Hypo-osmolality and hyponatremia; E78.5 Hyperlipidemia, unspecified; D50.9 Iron deficiency anemia, unspecified; E03.9 Hypothyroidism, unspecified; Z79.899 Other long term (current) drug therapy; Z87.891 Personal history of nicotine dependence; Z98.890 Other specified postprocedural states; X58.XXXA Exposure to other specified factors, initial encounter; Y93.89 Activity, other specified; Y92.89 Other specified places as the place of occurrence of the external cause; Y99.8 Other external cause status
CPT/HCPCS: A4649; J0690; J1100; J2405; J3490